=== PATIENT | male | born 1980 ===

== ENCOUNTER 2018-05-20 22:11 | Emergency (ER) | payer SELFPAY ==
[2018-05-20 23:32] LABS: Hematocrit 41.7 % (35.5-45.6); Hemoglobin 14.2 gm/dl (11.8-15.2); Mean Corpuscular HGB Conc 34 % (32-34); Mean Corpuscular Hemoglobin 29 pg (28-32); Mean Corpuscular Volume 86 fl (84-94); Platelet Count 363 K/mm3 (140-440); Red Blood Count 4.86 M/mm3 (3.65-5.03); Red Cell Distribution Width 14.4 % (13.2-15.2)
[2018-05-20 23:45] LABS: INR 1.04 (0.87-1.13)
[2018-05-20 23:53] LABS: Albumin 4.2 g/dL (3.9-5); Calcium 9.5 mg/dL (8.4-10.2)
[2018-05-21 03:36] LABS: Uric Acid 9.4 mg/dL (3.5-7.6)
[2018-05-21] MEDS ORDERED: TYLENOL PO ONE (03:43)
[2018-05-21] MEDS ORDERED: TYLENOL ONE (03:47)
[2018-05-21] MEDS ORDERED: ZOFRAN IM ONE (04:36)
[2018-05-21] MEDS ORDERED: SUBLIMAZE IM ONE (04:36)
[2018-05-21] MEDS ORDERED: COLCHICINE PO ONE (04:37)
--- NOTE | 2018-05-21 04:46 | Emergency Department Report ---
HPI - General Chief Complaint: Extremity Problem,Nontraumatic Time Seen by Provider: 05/21/18 04:36 - [facility] HPI: [place] [address] The patient is a 37-year-old male presenting with a chief complaint of podagra. The patient has a history of gout and states for the past week he's had pain in his right great toe consistent with his previous bouts of gout. Patient states the pain is worsening now to the point where it is difficult for him to walk. The patient gives his pain a score of 10/10 Location: Right great toe Duration: 1 week Quality: Gouty arthritis Severity: 10/10 Modifying factors: [see above] Context: [see above] Mode of transportation: [not driving] ED Past Medical Hx - Past Medical History Previous Medical History?: Yes Hx Renal Disease: Yes (renal insufficiency with remaining kidney) Hx of Cancer: Yes (renal) Additional medical history: gout. PE - Surgical History Past Surgical History?: Yes Additional Surgical History: left nephrectomy - Family History Family history: no significant - Social History Smoking Status: Light Tobacco Smoker Substance Use Type: None - Medications Home Medications: Home Medications Medication Instructions Recorded Confirmed Last Taken Type HYDROcodone/APAP 5-325 [[place] 1 - 2 each PO Q6HR PRN #14 tablet 05/21/18 Unknown Rx 5/325] ED Review of Systems ROS: Stated complaint: RT TOE PAIN Other details as noted in HPI Constitutional: no symptoms reported Eyes: denies: eye pain ENT: denies: throat pain Respiratory: no symptoms reported Cardiovascular: denies: chest pain Endocrine: no symptoms reported Gastrointestinal: denies: abdominal pain Genitourinary: denies: dysuria Musculoskeletal: arthralgia Neurological: denies: headache Physical Exam - Physical Exam Vital Signs: Vital Signs 05/20/18 05/21/18 22:43 03:35 Temperature 99.1 F 98.7 F Pulse Rate 100 H 90 Respiratory 22 20 Rate Blood Pressure 140/93 145/99 O2 Sat by Pulse 97 96 Oximetry Physical Exam: GENERAL: The patient is well-developed well-nourished male sitting on stretcher not appearing to be in acute distress. [] HEENT: Normocephalic. Atraumatic. Extraocular motions are intact. NECK: Supple. Trachea midline CHEST/LUNGS: There is no respiratory distress noted. HEART/CARDIOVASCULAR: Regular. There is no tachycardia. ABDOMEN: Abdomen is soft, nontender. Patient has normal bowel sounds. There is no abdominal distention. SKIN: There is no rash. There is slight edema of the right foot. There is no diaphoresis. No cellulitis appreciated NEURO: The patient is awake, alert, and oriented. The patient is cooperative. The patient has normal speech MUSCULOSKELETAL: There is pain and tenderness of the right great toe ED Course Vital Signs 05/20/18 05/21/18 22:43 03:35 Temperature 99.1 F 98.7 F Pulse Rate 100 H 90 Respiratory 22 20 Rate Blood Pressure 140/93 145/99 O2 Sat by Pulse 97 96 Oximetry ED Medical Decision Making - Lab Data Result diagrams: 05/20/18 22:56 05/20/18 22:56 Laboratory Tests 05/20/18 05/20/18 05/20/18 22:56 22:56 22:56 WBC 10.4 RBC 4.86 Hgb 14.2 Hct 41.7 MCV 86 MCH 29 MCHC 34 RDW 14.4 Plt Count 363 PT 14.1 INR 1.04 APTT 26.0 Sodium 137 Potassium 4.2 Chloride 99.5 Carbon Dioxide 22 Anion Gap 20 BUN 18 Creatinine 2.1 H Estimated GFR 36 BUN/Creatinine Ratio 9 Glucose 133 H Uric Acid 9.4 H Calcium 9.5 Total Bilirubin 0.50 AST 20 ALT 26 Alkaline Phosphatase 48 Total Protein 7.8 Albumin 4.2 Albumin/Globulin Ratio 1.2 - Differential Diagnosis gouty arthritis Critical care attestation.: If time is entered above; I have spent that time in minutes in the direct care of this critically ill patient, excluding procedure time. ED Disposition Clinical Impression: Podagra, Toe pain, right Disposition: - TO HOME OR SELFCARE Is pt being admited?: No Does the pt Need Aspirin: No Condition: Stable Instructions: Arthralgia (ED) Additional Instructions: Today you're creatinine was found to be 2.1 mg/dL. It is important that you follow up with your kidney specialist for further evaluation. Return to the emergency department immediately should you develop worsening symptoms, fever, inability to tolerate food or liquid or any other concerns. Prescriptions: HYDROcodone/APAP 5-325 [[place] 5/325] 1 - 2 each PO Q6HR PRN #14 tablet PRN Reason: Pain Referrals: PRIMARY CARE, [Primary Care Provider] - 3-5 Days Time of Disposition: 04:50
[2018-05-21 05:05] VITALS: BP 138/78
== END 2018-05-21 05:17 | disposition home or self-care (01) ==
LOC: ED 22:11
DX: M10.9 Gout, unspecified (principal); F17.200 Nicotine dependence, unspecified, uncomplicated; Z88.6 Allergy status to analgesic agent
CPT/HCPCS: 36415; 80053; 84550; 85027; 85610; 85730; 96372; 99283; J2405; J3010